=== PATIENT | female | born 1985 | race Two or more races ===

== ENCOUNTER 2018-05-04 05:14 | Inpatient (IN) | payer OTHER ==
[~2018-05-04] VITALS: Ht 172.7 cm; Wt 95.3 kg
[2018-05-04] MEDS ORDERED: PRENATAL TABLE1 EAC1 PO (05:34)
== END 2018-05-06 11:45 | DRG 775 ==
LOC: LDR 05:14 → OB/GYN 05:14
PROC: 10E0XZZ Delivery of Products of Conception, External Approach (ICD-10-PCS; principal; 2018-05-04)
PROC: 10907ZC Drainage of Amniotic Fluid, Therapeutic from Products of Conception, Via Natural or Artificial Opening (ICD-10-PCS; 2018-05-04)
PROC: 4A033R1 Measurement of Arterial Saturation, Peripheral, Percutaneous Approach (ICD-10-PCS; 2018-05-04)
PROC: 4A1HXCZ Monitoring of Products of Conception, Cardiac Rate, External Approach (ICD-10-PCS; 2018-05-04)
DX: O80 Encounter for full-term uncomplicated delivery (principal); Z3A.37 37 weeks gestation of pregnancy; Z37.0 Single live birth